=== PATIENT | male | born 1985 | race Caucasian/White ===

== ENCOUNTER 2016-09-16 16:02 | Emergency (ER) | payer OTHER ==
[~2016-09-16] VITALS: Ht 170.2 cm; Wt 79.4 kg
[~2016-09-16 16:02] MED LIST: AZITHROMYCIN 2250 MG PO; NORCO 5-325 TA1 EACH PO; PHENERGAN 25 MG25 M1 PO; PREDNISONE 10 M10 M1 PO; PROAIR HFA8.5 GM IH; TOBREX5 ML OPHTHALMIC; ZOFRAN ODT4 MG PO
[2016-09-16 16:20] VITALS: BP 129/82
[2016-09-16] MEDS ORDERED: KETOCONAZOLE60 GM TP (16:42)
== END 2016-09-16 17:02 | disposition home or self-care (01) ==
LOC: ER 16:02
DX: B35.4 Tinea corporis (principal); F17.210 Nicotine dependence, cigarettes, uncomplicated